=== PATIENT | male | born 1965 | race Caucasian/White ===

== ENCOUNTER 2016-06-29 00:26 | Inpatient (IN) | payer OTHER ==
--- NOTE | 2016-06-29 00:45 | HP ---
CIWA Score - CIWA Score Nausea/Vomitin-Mild Nausea/No Vomiting Muscle Tremors: 2 Anxiety: 3 Agitation: 3 Paroxysmal Sweats: 3 Orientation: 1-Uncertain about Date Tacttile Disturbances: 2-Mild Itch/Numbness/Burn Auditory Disturbances: 1-Very Mild Visual Disturbances: 1-Very Mild Sensitivity Headache: 2-Mild CIWA-Ar Total Score: 19 Admission ROS BHS - HPI Chief Complaint: WITHDRAWAL SYMPTOM Allergies/Adverse Reactions: Allergies Allergy/AdvReac Type Severity Reaction Status Date / Time No Known Allergies Allergy Verified 07/16/15 17:23 History of Present Illness: 51 Y.O. MAN WITH AN EXTENSIVE HISTORY OF ALCOHOL AND BENZODIAZEPINE DEPENDENCE IS SEEKING DETOX. HE HAS PREVIOUSLY COMPLETED DETOX HERE AND HIS LAST ADMISSION WAS IN 07/2015. Exam Limitations: Intoxication - Ebola screening Have you traveled outside of the country in the last 21 days: No - Review of Systems Constitutional: Chills, Loss of Appetite, Night Sweats, Changes in sleep EENT: reports: Blurred Vision, Double Vision, Tearing Respiratory: reports: No Symptoms reported Cardiac: reports: No Symptoms Reported GI: reports: Diarrhea, Vomiting : reports: No Symptoms Reported Musculoskeletal: reports: No Symptoms Reported Integumentary: reports: No Symptoms Reported Neuro: reports: Headache, Seizure, Tremors, Unsteady Gait Endocrine: reports: No Symptoms Reported Hematology: reports: No Symptoms Reported Psychiatric: reports: Anxious Other Systems: Reviewed and Negative Patient History - Patient Medical History Hx Anemia: No Hx Asthma: No Hx Chronic Obstructive Pulmonary Disease (COPD): No Hx Cancer: No Hx Cardiac Disorders: Yes (Cardiomyopathy) Hx Congestive Heart Failure: No Hx Hypertension: Yes (on meds) Hx Hypercholesterolemia: No Hx Pacemaker: No HX Cerebrovascular Accident: No Hx Seizures: Yes (ETOH related seizures last 9 months ago.) Hx Dementia: No Hx Diabetes: No Hx Gastrointestinal Disorders: No Hx Liver Disease: No Hx Genitourinary Disorders: No Hx Sexually Transmitted Disorders: No Hx Renal Disease (ESRD): No Hx Thyroid Disease: No Hx Human Immunodeficiency Virus (HIV): No Hx Hepatitis C: No Hx Depression: Yes Hx Suicide Attempt: No Hx Bipolar Disorder: No Hx Schizophrenia: No - Patient Surgical History Past Surgical History: Yes Hx Neurologic Surgery: No Hx Cataract Extraction: No Hx Cardiac Surgery: No Hx Lung Surgery: No Hx Breast Surgery: No Hx Breast Biopsy: No Hx Abdominal Surgery: Yes (umbilical hernia (1997)) Hx Appendectomy: Yes (1998) Hx Cholecystectomy: No Hx Genitourinary Surgery: No Hx Section: No Hx Orthopedic Surgery: No Anesthesia Reaction: No - PPD History Previous Implant?: Yes Documented Results: Negative w/proof Implanted On Prior [facility] Admission?: Yes Date: 02/18/15 Results: 0 mm PPD to be Administered?: Yes - Reproductive History Patient is a Female of Child Bearing Age (11 -55 yrs old): No - Smoking Cessation Smoking history: Current some day smoker Have you smoked in the past 12 months: Yes Aproximately how many cigarettes per day: 1 If you are a former smoker, when did you quit?: 7 YRS AGO. Cigars Per Day: 0 Hx Chewing Tobacco Use: No Initiated information on smoking cessation: Yes 'Breaking Loose' booklet given: 06/29/16 - Substance & Tx. History Hx Alcohol Use: Yes Hx Substance Use: Yes Substance Use Type: Alcohol, Heroin Hx Substance Use Treatment: Yes (DETOX AND REHAB ) - Substances Abused Alcohol Route: Oral Frequency: Daily Amount used: 2 6-PACKS OF BEER AND 1 PINT OF LIQUOR Age of first use: 16 Date of Last Use: 06/28/16 Alprazolam (Xanax) Route: Oral Frequency: Daily Amount used: 1MG Age of first use: 33 Date of Last Use: 06/28/16 Heroin Route: Oral Frequency: 1-3 times last 30 days Amount used: 1 BAG Age of first use: 24 Date of Last Use: 06/19/16 Family Disease History - Family Disease History Family Disease History: Other: Father (ETOH DEPENDENT), Mother (THYROID DISEASE ), Brother (ETOH DEPENDENT) Admission Physical Exam S - Vital Signs Vital Signs: Last Vital Signs Temp Pulse Resp BP Pulse Ox 98.9 F 105 H 19 144/94 06/29/16 01:35 06/29/16 01:35 06/29/16 01:35 06/29/16 01:35 - Physical General Appearance: Yes: Alcohol on Breath, Intoxicated, Obese, Tremorous, Anxious HEENTM: Yes: Hearing grossly Normal, Normocephalic, Normal Voice Respiratory: Yes: Chest Non-Tender, Lungs Clear, Normal Breath Sounds, No Respiratory Distress, No Accessory Muscle Use Neck: Yes: No masses,lesions,Nodules Breast: Yes: Breast Exam Deferred Cardiology: Yes: Regular Rhythm, S1, S2, Tachycardia Abdominal: Yes: Normal Bowel Sounds, Non Tender, Flat, Soft Genitourinary: Yes: Within Normal Limits Back: Yes: Normal Inspection Musculoskeletal: Yes: full range of Motion, Gait Steady Extremities: Yes: Tremors, Pedal Edema Neurological: Yes: bottle capper II-XII NML intact, Alert Integumentary: Yes: Normal Color, Dry, Warm Lymphatic: Yes: Within Normal Limits - Diagnostic (1) Alcohol dependence with uncomplicated withdrawal Current Visit: Yes Status: Chronic (2) Benzodiazepine dependence Current Visit: Yes Status: Chronic (3) HTN (hypertension) Current Visit: Yes Status: Chronic Qualifiers: Hypertension type: essential hypertension Qualified Code(s): I10 - Essential (primary) hypertension (4) Obesity Current Visit: Yes Status: Chronic Qualifiers: Obesity severity: unspecified obesity severity Cleared for Admission S - Detox or Rehab [facility] Level of Care: Medically Managed Detox Regimen/Protocol: Librium S Breath Alcohol Content Breath Alcohol Content: 0.112 Vital Signs - Vital Signs Vital Signs Refused: No Temperature: 98.9 F Temperature Source: Oral Pulse Rate: 105 Respiratory Rate: 19 Blood Pressure: 144/94 BP Location: Left Arm - Height Height: 5 ft 7 in - Weight Weight: 215 lb Weight Measurement Method: Standing Scale Body Mass Index (BMI): 33.6 Urine Drug Screen - Control Is Test Valid: Yes - Results Drug Screen Negative: No Urine Drug Screen Results: JEFE-Cocaine, BZO-Benzodiazepines
[2016-06-29] MEDS ORDERED: chlordiazePOXIDE HCL 25 MG CAPSULE PO ONE ×2 (01:03→14:00)
[2016-06-29] MEDS ORDERED: P-EPHED 60MG/TRIPROLIDI 2.5MG TABLET PO PRN (01:03)
[2016-06-29] MEDS ORDERED: LOPERAMIDE HCL 2 MG CAPSULE PO PRN (01:03)
[2016-06-29] MEDS ORDERED: MAGNESIUM CITRATE 300 ML BOTTLE PO PRN (01:03)
[2016-06-29] MEDS ORDERED: IBUPROFEN 400 MG TABLET (FP) PO PRN (01:03)
[2016-06-29] MEDS ORDERED: guaiFENesin/D-METHORPHAN HB 10 ML UNIT-DOSE CUPS PO PRN (01:03)
[2016-06-29] MEDS ORDERED: MAG HYDROX/AL HYDROX/SIMETH 30 ML UNIT-DOSE CUP PO PRN (01:03)
[2016-06-29] MEDS ORDERED: MENTHOL/PHENOL 1 EACH UD MM PRN (01:03)
[2016-06-29] MEDS ORDERED: MAGNESIUM HYDROX 2400MG/30ML ORAL SUSPENSION 30 ML CUP PO PRN (01:03)
[2016-06-29 01:35] VITALS: BMI 33.6
[2016-06-29] MEDS: chlordiazePOXIDE HCL 25 MG CAPSULE PO SCH ×4 (05:54→22:18)
[2016-06-29] MEDS ORDERED: LISINOPRIL 10 MG TABLET (FP) PO SCH (10:00)
[2016-06-29] MEDS: PRENATAL VITAMINS W/ FOLIC ACID TABLET (FP) PO SCH (10:31)
[2016-06-29] MEDS: chlordiazePOXIDE HCL 25 MG CAPSULE PO PRN ×2 (12:35→20:03)
--- NOTE | 2016-06-29 13:07 | PN ---
[facility] Progress Note Note: Pt. was admitted earlier today,he's still tremulous. Vital Signs - 8 hr 06/29/16 06/29/16 06:29 11:53 Temperature 97.4 F L 97.7 F Pulse Rate 101 H 110 H Respiratory 18 20 Rate Blood Pressure 144/93 150/91 labs pending.A review of past medication & outside pharmacy reveals that pt. was taking coreg & lasix,moreover lisinopril was twice a day. P : Medications are ordered
[2016-06-29] MEDS: CARVEDILOL 6.25 MG TABLET (FP) PO SCH ×2 (15:43→22:18)
[2016-06-29] MEDS: FUROSEMIDE 20 MG TABLET (FP) PO SCH (15:43)
[2016-06-29] MEDS: hydrOXYzine PAMOATE 50 MG CAPSULE (FP) PO PRN (17:47)
[2016-06-29] MEDS: LISINOPRIL 10 MG TABLET (FP) PO SCH (22:18)
[2016-06-29] MEDS: THIAMINE HCL 100 MG TABLET (FP) PO SCH (22:18)
[2016-06-29] MEDS: diphenhydrAMINE HCL 50 MG CAPSULE PO PRN (22:19)
--- NOTE | 2016-06-30 00:47 | EKG ---
Test Reason : Blood Pressure : / mmHG Vent. Rate : 088 BPM Atrial Rate : 088 BPM P-R Int : 172 ms QRS Dur : 118 ms QT Int : 376 ms P-R-T Axes : 061 026 054 degrees QTc Int : 454 ms NORMAL SINUS RHYTHM NON-SPECIFIC INTRA-VENTRICULAR CONDUCTION DELAY BORDERLINE ECG NO PREVIOUS ECGS AVAILABLE Confirmed by SANDRA RUBY, SHUN ([id number]) on 06/30/2016 12:47:10 AM Referred By: Confirmed By:SHUN FLORES MD
[2016-06-30] MEDS: chlordiazePOXIDE HCL 25 MG CAPSULE PO SCH ×4 (05:10→22:19)
[2016-06-30 10:13] LABS: MCH 31.7 pg (25.7-33.7); MCHC 33.2 g/dl (32.0-35.9); MEAN CELL VOLUME 95.7 fl (80-96); MEAN PLT VOLUME 9.3 fl (7.5-11.1); PLATELET COUNT 127 K/MM3 (134-434); RDW 14.4 % (11.9-15.9); WHITE BLOOD COUNT 9.7 K/mm3 (4.0-10.0)
[2016-06-30 10:23] LABS: ALK PHOS 97 U/L (45-117); ANION GAP 11 (8-16); BILIRUBIN,TOTAL 0.4 mg/dL (0.2-1.0); CO2 26 mmol/L (21-32); GLUCOSE,RANDOM 112 mg/dL (74-106); SGOT/AST 77 U/L (15-37); SGPT/ALT 53 U/L (12-78); TOT PROT 7.7 g/dl (6.4-8.2)
[2016-06-30] MEDS: PRENATAL VITAMINS W/ FOLIC ACID TABLET (FP) PO SCH (10:23)
[2016-06-30] MEDS: CARVEDILOL 6.25 MG TABLET (FP) PO SCH ×2 (10:23→22:19)
[2016-06-30] MEDS: ACETAMINOPHEN 325 MG TABLET (FP) PO PRN (10:23)
[2016-06-30] MEDS: FUROSEMIDE 20 MG TABLET (FP) PO SCH (10:23)
[2016-06-30] MEDS: LISINOPRIL 10 MG TABLET (FP) PO SCH ×2 (10:23→22:19)
[2016-06-30 10:35] LABS: URINE APPEARANCE CLEAR; URINE BILIRUBIN NEGATIVE (NEGATIVE); URINE BLOOD NEGATIVE (NEGATIVE); URINE COLOR LTYELLOW; URINE GLUCOSE (UA) NEGATIVE (NEGATIVE); URINE KETONE NEGATIVE (NEGATIVE); URINE LEUK ESTERASE NEGATIVE (NEGATIVE); URINE NITRITE NEGATIVE (NEGATIVE); URINE PROTEIN NEGATIVE (NEGATIVE); URINE UROBILINOGEN NEGATIVE E.U./dl (0.2-1.0)
--- NOTE | 2016-06-30 11:58 | CONSULT ---
[facility] Psychiatric Consult - Data Date of interview: 06/30/16 Admission source: [facility] Identifying data: Mr Castillo is a 51 years old single male, unemployed on public assistance, domiciled seeking detox treatment for alcohol, heroin and xanax Substance Abuse History: - Smoking Cessation. Smoking history: Current some day smoker. Have you smoked in the past 12 months: Yes. Aproximately how many cigarettes per day: 1. If you are a former smoker, when did you quit?: 7 YRS AGO. Cigars Per Day: 0. Hx Chewing Tobacco Use: No. Initiated information on smoking cessation: Yes. 'Breaking Loose' booklet given: 06/29/16. - Substance & Tx. History. Hx Alcohol Use: Yes. Hx Substance Use: Yes. Substance Use Type : Alcohol, Heroin. Hx Substance Use Treatment: Yes (DETOX AND REHAB ). - Substances Abused. Alcohol. Route: Oral. Frequency: Daily. Amount used: 2 6-PACKS OF BEER AND 1 PINT OF LIQUOR. Age of first use: 16. Date of Last Use : 06/28/16. Alprazolam (Xanax). Route: Oral. Frequency: Daily. Amount used: 1MG. Age of first use: 33. Date of Last Use: 06/28/16. Heroin. Route: Oral. Frequency: 1-3 times last 30 days. Amount used: 1 BAG. Age of first use: 24. Date of Last Use: 06/19/16 Medical History: Significant for HTN, Cardiomyopathy, Alcohol-induced seizure, Obesity, surgery for left Inguinal Hernia repair in 1997 and Appendectomy in 1998 Psychiatric History: Denies history of previous psychiatric treatment. However, reports feeling anxious and experiencing difficulty to sleep Mental Status Exam - Mental Status Exam Alert and Oriented to: Time, Place, Person Cognitive Function: Fair Patient Appearance: Well Groomed Mood: Anxious Affect: Appropriate Patient Behavior: Cooperative Speech Pattern: Clear Voice Loudness: Normal Thought Process: Intact Thought Disorder: Not Present Hallucinations: Denies Suicidal Ideation: Denies Homicidal Ideation: Denies Insight/Judgement: Poor Sleep: Poorly Appetite: Good Muscle strength/Tone: Normal Gait/Station: Normal Psychiatric Findings - Problem List ([place] 1, 2,3) (1) Substance induced mood disorder Current Visit: No Status: Acute (2) Substance-induced sleep disorder Current Visit: No Status: Acute (3) Alcohol dependence with uncomplicated withdrawal Current Visit: Yes Status: Chronic (4) Opiate dependence Current Visit: No Status: Acute (5) Benzodiazepine dependence Current Visit: Yes Status: Chronic (6) HTN (hypertension) Current Visit: Yes Status: Chronic Qualifiers: Hypertension type: essential hypertension Qualified Code(s): I10 - Essential (primary) hypertension (7) Obesity Current Visit: Yes Status: Chronic Qualifiers: Obesity severity: unspecified obesity severity - Initial Treatment Plan Initial Treatment Plan: Start Ambien 10 mg po HS prn for insomnia. Benefit vs Risks of medication discussed with patient and he agreeed to try it
[2016-06-30] MEDS ORDERED: PNEUMOC 13-VAL CONJ-DIP CRM/PF 0.5 ML DISP.SYRIN IM ONE (12:00)
[2016-06-30] MEDS ORDERED: PNEUMOCOCCAL 23 VACCINE 0.5 ML VIAL IM ONE (12:00)
--- NOTE | 2016-06-30 16:40 | PN ---
S CIWA - CIWA Score Nausea/Vomitin-No Nausea/No Vomiting Muscle Tremors: 4-Moderate,w/Arms Extend Anxiety: 2 Agitation: 2 Paroxysmal Sweats: 3 Orientation: 0-Oriented Tacttile Disturbances: 3-Moderate Itch/Numb/Burn Auditory Disturbances: 0-None Visual Disturbances: 2-Mild Sensitivity Headache: 3-Moderate CIWA-Ar Total Score: 19 BHS Progress Note (SOAP) Subjective: Sweating, Constipation, Tremors, H/A, Interrupted sleep. Objective: PT. A & O X 3, OBSERVED AMBULATING ON UNIT. 06/30/16 16:39 Vital Signs Temperature 98.4 F 06/30/16 13:03 Pulse Rate 83 06/30/16 13:03 Respiratory Rate 18 06/30/16 13:03 Blood Pressure 114/72 06/30/16 13:03 O2 Sat by Pulse Oximetry (%) Laboratory Last Values WBC 9.7 K/mm3 (4.0-10.0) D 06/30/16 06:15 RBC 4.30 M/mm3 (4.00-5.60) 06/30/16 06:15 Hgb 13.7 GM/dL (11.7-16.9) 06/30/16 06:15 Hct 41.2 % (35.4-49) 06/30/16 06:15 MCV 95.7 fl (80-96) 06/30/16 06:15 MCHC 33.2 g/dl (32.0-35.9) 06/30/16 06:15 RDW 14.4 % (11.9-15.9) 06/30/16 06:15 Plt Count 127 K/MM3 (134-434) L D 06/30/16 06:15 MPV 9.3 fl (7.5-11.1) 06/30/16 06:15 Sodium 140 mmol/L (136-145) 06/30/16 06:15 Potassium 4.0 mmol/L (3.5-5.1) D 06/30/16 06:15 Chloride 103 mmol/L (98-107) 06/30/16 06:15 Carbon Dioxide 26 mmol/L (21-32) 06/30/16 06:15 Anion Gap 11 (8-16) 06/30/16 06:15 BUN 12 mg/dL (7-18) 06/30/16 06:15 Creatinine 1.0 mg/dL (0.7-1.3) D 06/30/16 06:15 Creat Clearance w eGFR > 60 (>60) 06/30/16 06:15 Random Glucose 112 mg/dL (74-106) H 06/30/16 06:15 Calcium 9.0 mg/dL (8.5-10.1) 06/30/16 06:15 Total Bilirubin 0.4 mg/dL (0.2-1.0) 06/30/16 06:15 AST 77 U/L (15-37) H 06/30/16 06:15 ALT 53 U/L (12-78) D 06/30/16 06:15 Alkaline Phosphatase 97 U/L (45-117) D 06/30/16 06:15 Total Protein 7.7 g/dl (6.4-8.2) 06/30/16 06:15 Albumin 4.0 g/dl (3.4-5.0) D 06/30/16 06:15 Urine Color Ltyellow 06/30/16 06:15 Urine Appearance Clear 06/30/16 06:15 Urine pH 7.0 (5.0-8.0) 06/30/16 06:15 Ur Specific [place] 1.011 (1.001-1.035) 06/30/16 06:15 Urine Protein Negative (NEGATIVE) 06/30/16 06:15 Urine Glucose (UA) Negative (NEGATIVE) 06/30/16 06:15 Urine Ketones Negative (NEGATIVE) 06/30/16 06:15 Urine Blood Negative (NEGATIVE) 06/30/16 06:15 Urine Nitrite Negative (NEGATIVE) 06/30/16 06:15 Urine Bilirubin Negative (NEGATIVE) 06/30/16 06:15 Urine Urobilinogen Negative E.U./dl (0.2-1.0) 06/30/16 06:15 Ur Leukocyte Esterase Negative (NEGATIVE) 06/30/16 06:15 RPR Titer Nonreactive (NONREACTIVE) 06/30/16 06:15 LABS NOTED. Assessment: 06/30/16 16:40 WITHDRAWAL SYMPTOMS. Plan: CONTINUE DETOX. ADVISED PATIENT TO FOLLOW-UP WITH [facility] / REHAB MEDICAL PROVIDER AFTER DISCHARGE FROM DETOX FOR GENERAL MEDICAL ASSESSMENT AND FOR ABNORMAL LAB VALUES.
[2016-06-30] MEDS ORDERED: ZOLPIDEM TARTRATE 10 MG TABLET (PARK CARE ONLY) PO PRN (22:00)
[2016-06-30] MEDS: DOCUSATE SODIUM 100 MG CAPSULE (FP) PO SCH (22:19)
[2016-06-30] MEDS: THIAMINE HCL 100 MG TABLET (FP) PO SCH (22:19)
[2016-06-30] MEDS: diphenhydrAMINE HCL 50 MG CAPSULE PO PRN (22:20)
[2016-07-01] MEDS: chlordiazePOXIDE HCL 25 MG CAPSULE PO PRN (01:56)
[2016-07-01] MEDS: diphenhydrAMINE HCL 50 MG CAPSULE PO PRN ×2 (01:56→22:14)
[2016-07-01] MEDS: chlordiazePOXIDE 5 MG CAPSULE PO SCH ×2 (05:53→10:16)
[2016-07-01] MEDS: LISINOPRIL 10 MG TABLET (FP) PO SCH ×2 (10:16→22:14)
[2016-07-01] MEDS: DOCUSATE SODIUM 100 MG CAPSULE (FP) PO SCH ×2 (10:16→22:14)
[2016-07-01] MEDS: PRENATAL VITAMINS W/ FOLIC ACID TABLET (FP) PO SCH (10:16)
[2016-07-01] MEDS: CARVEDILOL 6.25 MG TABLET (FP) PO SCH ×2 (10:17→22:14)
[2016-07-01] MEDS: FUROSEMIDE 20 MG TABLET (FP) PO SCH (10:17)
[2016-07-01] MEDS: ACETAMINOPHEN 325 MG TABLET (FP) PO PRN ×2 (10:19→17:40)
--- NOTE | 2016-07-01 11:00 | PN ---
[facility] CIWA - CIWA Score Nausea/Vomitin-No Nausea/No Vomiting Muscle Tremors: 4-Moderate,w/Arms Extend Anxiety: 4-Mod. Anxious/Guarded Agitation: 4-Moderately Restless Paroxysmal Sweats: 1-Minimal Palms Moist Orientation: 0-Oriented Tacttile Disturbances: 3-Moderate Itch/Numb/Burn Auditory Disturbances: 0-None Visual Disturbances: 0-None Headache: 0-None Present CIWA-Ar Total Score: 16 BHS Progress Note (SOAP) Subjective: ANXIETY-"NERVOUS',SWEATS,SLIGHT TREMORS. Objective: 07/01/16 11:00 Vital Signs Temperature 99.0 F 07/01/16 06:42 Pulse Rate 82 07/01/16 06:42 Respiratory Rate 18 07/01/16 06:42 Blood Pressure 143/101 07/01/16 06:42 O2 Sat by Pulse Oximetry (%) Laboratory Last Values WBC 9.7 K/mm3 (4.0-10.0) D 06/30/16 06:15 RBC 4.30 M/mm3 (4.00-5.60) 06/30/16 06:15 Hgb 13.7 GM/dL (11.7-16.9) 06/30/16 06:15 Hct 41.2 % (35.4-49) 06/30/16 06:15 MCV 95.7 fl (80-96) 06/30/16 06:15 MCHC 33.2 g/dl (32.0-35.9) 06/30/16 06:15 RDW 14.4 % (11.9-15.9) 06/30/16 06:15 Plt Count 127 K/MM3 (134-434) L D 06/30/16 06:15 MPV 9.3 fl (7.5-11.1) 06/30/16 06:15 Sodium 140 mmol/L (136-145) 06/30/16 06:15 Potassium 4.0 mmol/L (3.5-5.1) D 06/30/16 06:15 Chloride 103 mmol/L (98-107) 06/30/16 06:15 Carbon Dioxide 26 mmol/L (21-32) 06/30/16 06:15 Anion Gap 11 (8-16) 06/30/16 06:15 BUN 12 mg/dL (7-18) 06/30/16 06:15 Creatinine 1.0 mg/dL (0.7-1.3) D 06/30/16 06:15 Creat Clearance w eGFR > 60 (>60) 06/30/16 06:15 Random Glucose 112 mg/dL (74-106) H 06/30/16 06:15 Calcium 9.0 mg/dL (8.5-10.1) 06/30/16 06:15 Total Bilirubin 0.4 mg/dL (0.2-1.0) 06/30/16 06:15 AST 77 U/L (15-37) H 06/30/16 06:15 ALT 53 U/L (12-78) D 06/30/16 06:15 Alkaline Phosphatase 97 U/L (45-117) D 06/30/16 06:15 Total Protein 7.7 g/dl (6.4-8.2) 06/30/16 06:15 Albumin 4.0 g/dl (3.4-5.0) D 06/30/16 06:15 Urine Color Ltyellow 06/30/16 06:15 Urine Appearance Clear 06/30/16 06:15 Urine pH 7.0 (5.0-8.0) 06/30/16 06:15 Ur Specific [place] 1.011 (1.001-1.035) 06/30/16 06:15 Urine Protein Negative (NEGATIVE) 06/30/16 06:15 Urine Glucose (UA) Negative (NEGATIVE) 06/30/16 06:15 Urine Ketones Negative (NEGATIVE) 06/30/16 06:15 Urine Blood Negative (NEGATIVE) 06/30/16 06:15 Urine Nitrite Negative (NEGATIVE) 06/30/16 06:15 Urine Bilirubin Negative (NEGATIVE) 06/30/16 06:15 Urine Urobilinogen Negative E.U./dl (0.2-1.0) 06/30/16 06:15 Ur Leukocyte Esterase Negative (NEGATIVE) 06/30/16 06:15 RPR Titer Nonreactive (NONREACTIVE) 06/30/16 06:15 Assessment: 07/01/16 11:00 WITHDRAWAL SX Plan: CONTINUE DETOX
[2016-07-01] MEDS: hydrOXYzine PAMOATE 50 MG CAPSULE (FP) PO PRN (12:11)
[2016-07-01] MEDS ORDERED: chlordiazePOXIDE HCL 25 MG CAPSULE PO PRN (15:05)
[2016-07-01] MEDS: chlordiazePOXIDE HCL 10 MG CAPSULE PO SCH ×2 (17:26→22:13)
[2016-07-01] MEDS: THIAMINE HCL 100 MG TABLET (FP) PO SCH (22:13)
[2016-07-01 23:32] VITALS: BP 127/79; PULSE 78; TEMP 96.6
[2016-07-02] MEDS ORDERED: chlordiazePOXIDE HCL 10 MG CAPSULE PO SCH (05:00)
[2016-07-02] MEDS: chlordiazePOXIDE HCL 10 MG CAPSULE PO SCH (05:23)
[2016-07-02] MEDS: ACETAMINOPHEN 325 MG TABLET (FP) PO PRN (05:27)
--- NOTE | 2016-07-02 12:02 | PN ---
S Progress Note (SOAP) Subjective: DETOX COMPLETED Objective: 07/02/16 12:01 Vital Signs Temperature 96.6 F L 07/01/16 23:32 Pulse Rate 78 07/01/16 23:32 Respiratory Rate 20 07/02/16 00:30 Blood Pressure 127/79 07/01/16 23:32 O2 Sat by Pulse Oximetry (%) Assessment: 07/02/16 12:01 DECREASED WITHDRAWAL SX Plan: D/C'D TODAY.
--- NOTE | 2016-07-02 12:11 | DS ---
[facility] Detox Discharge Summary Admission Date: 06/29/16 Discharge Date: 07/02/16 - History Present History: Alcohol Dependence Additional Comments: DETOX COMPLETED. Pertinent Past History: HTN CARDIOMYOPATHY SEIZURE HX S/P UMBILICAL HERNIA REPAIR DEPRESSION - Physical Exam Results Vital Signs: Vital Signs Temperature 96.6 F L 07/01/16 23:32 Pulse Rate 78 07/01/16 23:32 Respiratory Rate 20 07/02/16 00:30 Blood Pressure 127/79 07/01/16 23:32 O2 Sat by Pulse Oximetry (%) Pertinent Admission Physical Exam Findings: WITHDRAWAL SX - Treatment Hospital Course: Detox Protocol Followed, Detoxed Safely, Responded well, Discharged Condition Good - Medication Discharge Medications: Ambulatory Orders Carvedilol [Coreg -] 6.25 mg PO BID 07/16/15 Lisinopril [Lisinopril] 06/29/16 - Diagnosis (1) Alcohol dependence with uncomplicated withdrawal Status: Acute (2) HTN (hypertension) Status: Chronic Qualifiers: Hypertension type: essential hypertension Qualified Code(s): I10 - Essential (primary) hypertension (3) History of cardiomyopathy Status: Chronic (4) Obesity Status: Chronic Qualifiers: Obesity severity: unspecified obesity severity - AMA Did Patient Leave Against Medical Advice: No
== END 2016-07-02 05:34 | disposition home or self-care (01) | DRG 775 ==
LOC: YASAS 00:26 → Y3N 01:02
PROVIDERS: ADMIT Internal Medicine; ATTEND Internal Medicine
PROC: HZ2ZZZZ Detoxification Services for Substance Abuse Treatment (ICD-10-PCS; principal; 2016-06-29)
DX: F10.230 Alcohol dependence with withdrawal, uncomplicated (principal); F13.20 Sedative, hypnotic or anxiolytic dependence, uncomplicated; F17.210 Nicotine dependence, cigarettes, uncomplicated; F19.24 Other psychoactive substance dependence with psychoactive substance-induced mood disorder; F19.282 Other psychoactive substance dependence with psychoactive substance-induced sleep disorder; E66.9 Obesity, unspecified; Z68.33 Body mass index [BMI] 33.0-33.9, adult; I42.9 Cardiomyopathy, unspecified; Z86.69 Personal history of other diseases of the nervous system and sense organs
CPT/HCPCS: 36415; 80053; 81003; 85027; 86593; 93005; 93010

== ENCOUNTER 2016-09-06 18:14 | Inpatient (IN) | payer OTHER ==
--- NOTE | 2016-09-06 19:50 | HP ---
CIWA Score - CIWA Score Nausea/Vomitin-Mild Nausea/No Vomiting Muscle Tremors: 3 Anxiety: 3 Agitation: 4-Moderately Restless Paroxysmal Sweats: 3 Orientation: 1-Uncertain about Date Tacttile Disturbances: 0-None Auditory Disturbances: 0-None Visual Disturbances: 0-None Headache: 3-Moderate CIWA-Ar Total Score: 18 Admission ROS BHS - HPI Chief Complaint: WITHDRAWAL SYMPTOMS Allergies/Adverse Reactions: Allergies Allergy/AdvReac Type Severity Reaction Status Date / Time No Known Allergies Allergy Verified 06/29/16 02:38 History of Present Illness: 51 Y.O. WITH AN EXTENSIVE HISTORY OF ALCOHOL DEPENDENCE IS HERE SEEKING DETOX. HE WAS LAST HERE IN 06/2016 BUT LEFT AMA. HE REPORTS HAVING A 7 YEAR HISTORY OF SOBRIETY BUT RELAPSED IN 2007. Exam Limitations: Intoxication - Ebola screening Have you traveled outside of the country in the last 21 days: No Have you had contact with anyone from an Ebola affected area: No Do you have a fever: No - Review of Systems Constitutional: Chills, Diaphoresis, Night Sweats EENT: reports: Blurred Vision, Double Vision, Tearing Respiratory: reports: Shortness of Breath Cardiac: reports: No Symptoms Reported GI: reports: Vomiting : reports: No Symptoms Reported Musculoskeletal: reports: No Symptoms Reported Integumentary: reports: No Symptoms Reported Neuro: reports: Seizure (H/O SZ-LAST WAS 1 YR AGO) Endocrine: reports: No Symptoms Reported Hematology: reports: No Symptoms Reported Psychiatric: reports: Anxious, Depressed Other Systems: Reviewed and Negative Patient History - Patient Medical History Hx Anemia: No Hx Asthma: No Hx Chronic Obstructive Pulmonary Disease (COPD): No Hx Cancer: No Hx Cardiac Disorders: Yes (Cardiomyopathy) Hx Congestive Heart Failure: No Hx Hypertension: Yes Hx Hypercholesterolemia: No Hx Pacemaker: No HX Cerebrovascular Accident: No Hx Seizures: Yes (ETOH INDUCED-1YR AGO ) Hx Dementia: No Hx Diabetes: No Hx Gastrointestinal Disorders: Yes (GERD) Hx Liver Disease: No Hx Genitourinary Disorders: No Hx Sexually Transmitted Disorders: No Hx Renal Disease (ESRD): No Hx Thyroid Disease: No Hx Human Immunodeficiency Virus (HIV): No Hx Hepatitis C: No Hx Depression: Yes Hx Suicide Attempt: No Hx Bipolar Disorder: No Hx Schizophrenia: No - Patient Surgical History Past Surgical History: Yes Hx Neurologic Surgery: No Hx Cataract Extraction: No Hx Cardiac Surgery: No Hx Lung Surgery: No Hx Breast Surgery: No Hx Breast Biopsy: No Hx Abdominal Surgery: Yes (umbilical hernia (1997)) Hx Appendectomy: Yes (1998) Hx Cholecystectomy: No Hx Genitourinary Surgery: No Hx Section: No Hx Orthopedic Surgery: No Anesthesia Reaction: No - PPD History Previous Implant?: Yes Documented Results: Negative w/proof Implanted On Prior [facility] Admission?: Yes Date: 07/01/16 Results: 0 mm PPD to be Administered?: No - Reproductive History Patient is a Female of Child Bearing Age (11 -55 yrs old): No - Smoking Cessation Smoking history: Current some day smoker Have you smoked in the past 12 months: Yes Aproximately how many cigarettes per day: 1 If you are a former smoker, when did you quit?: 7 YRS AGO. Cigars Per Day: 0 Hx Chewing Tobacco Use: No Initiated information on smoking cessation: Yes 'Breaking Loose' booklet given: 09/06/16 - Substance & Tx. History Hx Alcohol Use: Yes Hx Substance Use: Yes Substance Use Type: Alcohol, Tranquilizers Hx Substance Use Treatment: Yes (DETOX AND REHAB ) - Substances Abused Alprazolam (Xanax) Route: Oral Frequency: Daily Amount used: 0.5 Age of first use: 47 Date of Last Use: 09/06/16 Alcohol Route: Oral Frequency: Daily Amount used: 1/5 LIQOUR AND 24 CANS OF 16OZ OF BEERS Age of first use: 18 Date of Last Use: 09/06/16 Family Disease History - Family Disease History Family Disease History: Other: Father (ETOH DEPENDENT), Mother (THYROID DISEASE ), Brother (ETOH DEPENDENT) Admission Physical Exam S - Vital Signs Vital Signs: Last Vital Signs Temp Pulse Resp BP Pulse Ox 98.4 F 95 H 17 121/77 09/06/16 20:06 09/06/16 20:06 09/06/16 20:06 09/06/16 20:06 - Physical General Appearance: Yes: Disheveled, Alcohol on Breath, Intoxicated, Obese, Sweating, Anxious HEENTM: Yes: Hearing grossly Normal, Normal ENT Inspection, Normocephalic, Normal Voice Respiratory: Yes: Lungs Clear, Normal Breath Sounds, No Respiratory Distress, No Accessory Muscle Use Neck: Yes: No masses,lesions,Nodules, Trachea in good position Breast: Yes: Breast Exam Deferred Cardiology: Yes: Regular Rhythm, Regular Rate Abdominal: Yes: Normal Bowel Sounds, Non Tender Genitourinary: Yes: Other (NO COMPLAINTS REPORTED) Back: Yes: Normal Inspection Musculoskeletal: Yes: full range of Motion Extremities: Yes: Normal Inspection, Normal Range of Motion, Tremors Neurological: Yes: Alert, Normal Response Integumentary: Yes: Normal Color, Dry, Warm Lymphatic: Yes: Within Normal Limits - Diagnostic (1) Alcohol dependence with uncomplicated withdrawal Current Visit: Yes Status: Chronic (2) HTN (hypertension) Current Visit: Yes Status: Chronic Qualifiers: Hypertension type: essential hypertension Qualified Code(s): I10 - Essential (primary) hypertension (3) Obesity Current Visit: Yes Status: Chronic Qualifiers: Obesity severity: unspecified obesity severity (4) Sedative, hypnotic or anxiolytic dependence with withdrawal, uncomplicated Current Visit: Yes Status: Chronic Cleared for Admission S - Detox or Rehab S Level of Care: Medically Managed Detox Regimen/Protocol: Librium BHS Breath Alcohol Content Breath Alcohol Content: 0.335 Vital Signs - Vital Signs Vital Signs Refused: No Temperature: 98.4 F Temperature Source: Oral Pulse Rate: 95 Respiratory Rate: 17 Blood Pressure: 121/77 BP Location: Left Arm Blood Pressure Position: Sitting - Height Height: 5 ft 7 in - Weight Weight: 238 lb Weight Measurement Method: Standing Scale Body Mass Index (BMI): 37.3 Urine Drug Screen - Test Device Lot Number: [id number] Expiration Date: 04/09/18 - Control Is Test Valid: Yes - Results Drug Screen Negative: No Urine Drug Screen Results: BZO-Benzodiazepines
[2016-09-06 20:06] VITALS: BMI 37.3
[2016-09-06] MEDS ORDERED: MAGNESIUM HYDROX 2400MG/30ML ORAL SUSPENSION 30 ML CUP PO PRN (20:17)
[2016-09-06] MEDS ORDERED: IBUPROFEN 400 MG TABLET (FP) PO PRN (20:17)
[2016-09-06] MEDS ORDERED: LOPERAMIDE HCL 2 MG CAPSULE PO PRN (20:17)
[2016-09-06] MEDS ORDERED: P-EPHED 60MG/TRIPROLIDI 2.5MG TABLET PO PRN (20:17)
[2016-09-06] MEDS ORDERED: diphenhydrAMINE HCL 50 MG CAPSULE PO PRN (20:17)
[2016-09-06] MEDS ORDERED: chlordiazePOXIDE HCL 25 MG CAPSULE PO ONE (20:17)
[2016-09-06] MEDS ORDERED: MAGNESIUM CITRATE 300 ML BOTTLE PO PRN (20:17)
[2016-09-06] MEDS ORDERED: MENTHOL/PHENOL 1 EACH UD MM PRN (20:17)
[2016-09-06] MEDS ORDERED: ACETAMINOPHEN 325 MG TABLET (FP) PO PRN (20:17)
[2016-09-06] MEDS ORDERED: chlordiazePOXIDE HCL 25 MG CAPSULE PO PRN (20:17)
[2016-09-06] MEDS ORDERED: MAG HYDROX/AL HYDROX/SIMETH 30 ML UNIT-DOSE CUP PO PRN (20:17)
[2016-09-06] MEDS ORDERED: hydrOXYzine PAMOATE 50 MG CAPSULE (FP) PO PRN (20:17)
[2016-09-06] MEDS ORDERED: guaiFENesin/D-METHORPHAN HB 10 ML UNIT-DOSE CUPS PO PRN (20:17)
[2016-09-06] MEDS ORDERED: THIAMINE HCL 100 MG TABLET (FP) PO SCH (22:00)
[2016-09-06] MEDS ORDERED: CARVEDILOL 6.25 MG TABLET (FP) PO SCH (22:00)
[2016-09-06] MEDS ORDERED: chlordiazePOXIDE HCL 25 MG CAPSULE PO SCH (23:00)
[2016-09-07] MEDS ORDERED: FUROSEMIDE 40 MG TABLET (FP) PO SCH (10:00)
[2016-09-07] MEDS ORDERED: PRENATAL VITAMINS W/ FOLIC ACID TABLET (FP) PO SCH (10:00)
[2016-09-07] MEDS ORDERED: LISINOPRIL 10 MG TABLET (FP) PO SCH (10:00)
[2016-09-07 10:15] VITALS: BP 109/67; PULSE 83; TEMP 98.6
[2016-09-07 10:27] LABS: MCH 31.5 pg (25.7-33.7); MCHC 33.1 g/dl (32.0-35.9); MEAN CELL VOLUME 95.4 fl (80-96); MEAN PLT VOLUME 8.2 fl (7.5-11.1); PLATELET COUNT 148 K/MM3 (134-434); RDW 13.4 % (11.9-15.9); WHITE BLOOD COUNT 5.1 K/mm3 (4.0-10.0)
--- NOTE | 2016-09-07 10:49 | PN ---
S CIWA - CIWA Score Nausea/Vomitin Muscle Tremors: 3 Anxiety: 3 Agitation: 3 Paroxysmal Sweats: 1-Minimal Palms Moist Orientation: 0-Oriented Tacttile Disturbances: 1-Very Mild Itch/Numbness Auditory Disturbances: 1-Very Mild Visual Disturbances: 1-Very Mild Sensitivity Headache: 2-Mild CIWA-Ar Total Score: 18 BHS Progress Note (SOAP) Subjective: ALERT,IRRITABLE,ANXIOUS,INTERRUPTED SLEEP,TREMOR,PAIN IN THE BODY Objective: 09/07/16 10:47 09/07/16 10:47 Vital Signs Temperature 98.6 F 09/07/16 10:14 Pulse Rate 83 09/07/16 10:14 Respiratory Rate 16 09/07/16 10:14 Blood Pressure 109/67 09/07/16 10:14 O2 Sat by Pulse Oximetry (%) EKG NSR NO CHEST PAIN,NO SOB,NO DIZZINESS Laboratory Last Values WBC 5.1 K/mm3 (4.0-10.0) D 09/07/16 07:50 RBC 4.16 M/mm3 (4.00-5.60) 09/07/16 07:50 Hgb 13.1 GM/dL (11.7-16.9) 09/07/16 07:50 Hct 39.7 % (35.4-49) 09/07/16 07:50 MCV 95.4 fl (80-96) 09/07/16 07:50 MCHC 33.1 g/dl (32.0-35.9) 09/07/16 07:50 RDW 13.4 % (11.9-15.9) 09/07/16 07:50 Plt Count 148 K/MM3 (134-434) 09/07/16 07:50 MPV 8.2 fl (7.5-11.1) D 09/07/16 07:50 LABS PENDING Assessment: 09/07/16 10:48 WITHDRAWAL SYMPTOM Plan: CONTINUE DETOX
--- NOTE | 2016-09-07 10:51 | PN ---
S Progress Note Note: PATIENT DID NOT WANT TO COMPLETE TREATMENT,SEEN BY COUNSELOR,SIGNED RELEASE AMA
[2016-09-07 10:54] LABS: ALBUMIN 3.6 g/dl (3.4-5.0); ALK PHOS 76 U/L (45-117); ANION GAP 10 (8-16); BILIRUBIN,TOTAL 0.4 mg/dL (0.2-1.0); CALCIUM 8.1 mg/dL (8.5-10.1); CO2 26 mmol/L (21-32); CREATININE 0.9 mg/dL (0.7-1.3); GLUCOSE,RANDOM 96 mg/dL (74-106); SGOT/AST 58 U/L (15-37); SGPT/ALT 38 U/L (12-78); TOT PROT 6.9 g/dl (6.4-8.2)
--- NOTE | 2016-09-07 10:55 | DS ---
[facility] Detox Discharge Summary Admission Date: 09/06/16 Discharge Date: 09/07/16 - History Present History: Alcohol Dependence, Sedative Dependence Additional Comments: PATIENT DID NOT WANT TO COMPLETE TREATMENT,SIGNED RELEASE AMA,SEEN BY COUNSELOR Pertinent Past History: HYPERTENSION OBESITY ANXIETY AND DEPRESSION - Physical Exam Results Vital Signs: Vital Signs Temperature 98.6 F 09/07/16 10:14 Pulse Rate 83 09/07/16 10:14 Respiratory Rate 16 09/07/16 10:14 Blood Pressure 109/67 09/07/16 10:14 O2 Sat by Pulse Oximetry (%) Pertinent Admission Physical Exam Findings: WITHDRAWAL SYMPTOM - Medication Discharge Medications: Ambulatory Orders Carvedilol [Coreg -] 6.25 mg PO BID 07/16/15 Lisinopril [Lisinopril] 10 mg PO DAILY 06/29/16 Furosemide [Furosemide] 40 mg PO DAILY 09/06/16 Lisinopril [Lisinopril] 10 mg PO DAILY 09/06/16 - AMA Did Patient Leave Against Medical Advice: Yes
[2016-09-07] MEDS ORDERED: chlordiazePOXIDE HCL 25 MG CAPSULE PO SCH (23:00)
--- NOTE | 2016-09-08 00:13 | EKG ---
Test Reason : Blood Pressure : / mmHG Vent. Rate : 082 BPM Atrial Rate : 082 BPM P-R Int : 192 ms QRS Dur : 094 ms QT Int : 366 ms P-R-T Axes : 044 019 053 degrees QTc Int : 427 ms NORMAL SINUS RHYTHM INCOMPLETE RIGHT BUNDLE BRANCH BLOCK BORDERLINE ECG WHEN COMPARED WITH ECG OF 29-JUN-2016 02:00, NO SIGNIFICANT CHANGE WAS FOUND Confirmed by MYESHA NELSON MD ([id number]) on 09/08/2016 12:12:57 AM Referred By: Confirmed By:MYESHA NELSON MD
[2016-09-08] MEDS ORDERED: chlordiazePOXIDE 5 MG CAPSULE PO SCH (23:00)
[2016-09-09] MEDS ORDERED: chlordiazePOXIDE HCL 10 MG CAPSULE PO SCH (23:00)
== END 2016-09-07 10:39 | disposition left against medical advice (07) | DRG 770 ==
LOC: YASAS 18:14 → Y6N 20:44
PROVIDERS: ADMIT Internal Medicine; ATTEND Internal Medicine
PROC: HZ2ZZZZ Detoxification Services for Substance Abuse Treatment (ICD-10-PCS; principal; 2016-09-07)
DX: F10.230 Alcohol dependence with withdrawal, uncomplicated (principal); F13.230 Sedative, hypnotic or anxiolytic dependence with withdrawal, uncomplicated; I10 Essential (primary) hypertension; G40.509 Epileptic seizures related to external causes, not intractable, without status epilepticus; F32.9 Major depressive disorder, single episode, unspecified; E66.09 Other obesity due to excess calories; Z68.37 Body mass index [BMI] 37.0-37.9, adult
CPT/HCPCS: 36415; 80053; 85027; 86593; 93005; 93010

== ENCOUNTER 2018-01-24 04:18 | Inpatient (IN) | payer OTHER ==
--- NOTE | 2018-01-24 04:43 | HP ---
CIWA Score - CIWA Score Nausea/Vomitin Muscle Tremors: 4-Moderate,w/Arms Extend Anxiety: 3 Agitation: 3 Paroxysmal Sweats: 2 Orientation: 0-Oriented Tacttile Disturbances: 2-Mild Itch/Numbness/Burn Auditory Disturbances: 2-Mild Harshness/Frighten Visual Disturbances: 2-Mild Sensitivity Headache: 3-Moderate CIWA-Ar Total Score: 23 Admission ROS BHS - HPI Chief Complaint: DEPENDENT ON ETOH ONLY Allergies/Adverse Reactions: Allergies Allergy/AdvReac Type Severity Reaction Status Date / Time No Known Allergies Allergy Verified 09/06/16 22:03 History of Present Illness: THE PT. IS REQUESTING ADMISSION TO THE DETOX UNIT AND CAME FOR MEDICAL CLEARANCE Exam Limitations: No Limitations - Ebola screening Have you traveled outside of the country in the last 21 days: No Have you had contact with anyone from an Ebola affected area: No Have you been sick,other than usual withdrawal symptoms: No Do you have a fever: No - Review of Systems Constitutional: See HPI, Weakness EENT: reports: See HPI Respiratory: reports: See HPI Cardiac: reports: See HPI, Syncope GI: reports: See HPI, Diarrhea, Nausea, Vomiting : reports: No Symptoms Reported, See HPI Musculoskeletal: reports: See HPI, Muscle Pain, Muscle Weakness Integumentary: reports: See HPI, Flushing, Sweating Neuro: reports: See HPI, Headache, Tremors, Weakness Endocrine: reports: See HPI Hematology: reports: See HPI Psychiatric: reports: Judgement Intact, Orientated x3, Anxious, Depressed Patient History - Patient Medical History Hx Anemia: No Hx Asthma: No Hx Chronic Obstructive Pulmonary Disease (COPD): No Hx Cancer: No Hx Cardiac Disorders: Yes (Cardiomyopathy) Hx Congestive Heart Failure: No Hx Hypertension: Yes Hx Hypercholesterolemia: No Hx Pacemaker: No HX Cerebrovascular Accident: No Hx Seizures: Yes (ETOH INDUCED-1YR AGO ) Hx Dementia: No Hx Diabetes: No Hx Gastrointestinal Disorders: No Hx Liver Disease: No Hx Genitourinary Disorders: No Hx Sexually Transmitted Disorders: No Hx Renal Disease (ESRD): No Hx Thyroid Disease: No Hx Human Immunodeficiency Virus (HIV): No Hx Hepatitis C: No Hx Depression: Yes (and ANXIETY) Hx Suicide Attempt: No Hx Bipolar Disorder: No Hx Schizophrenia: No - Patient Surgical History Past Surgical History: Yes Hx Neurologic Surgery: No Hx Cataract Extraction: No Hx Cardiac Surgery: No Hx Lung Surgery: No Hx Breast Surgery: No Hx Breast Biopsy: No Hx Abdominal Surgery: Yes (umbilical hernia (1997)) Hx Appendectomy: Yes (1998) Hx Cholecystectomy: No Hx Genitourinary Surgery: No Hx Section: No Hx Orthopedic Surgery: No Anesthesia Reaction: No - PPD History Date: 07/01/16 Results: 0 mm - Smoking Cessation Smoking history: Current some day smoker Have you smoked in the past 12 months: Yes Aproximately how many cigarettes per day: 1 If you are a former smoker, when did you quit?: 7 YRS AGO. Cigars Per Day: 0 Hx Chewing Tobacco Use: No Initiated information on smoking cessation: Yes 'Breaking Loose' booklet given: 01/24/18 - Substance & Tx. History Hx Alcohol Use: Yes Substance Use Type: Alcohol Hx Substance Use Treatment: Yes - Substances Abused Alcohol Route: Oral Frequency: Daily Amount used: BEER 2 X 6 PKS AND LIQUOR 1 P/D Age of first use: 16 Date of Last Use: 01/23/18 Family Disease History - Family Disease History Family Disease History: Other: Father (ETOH DEPENDENT), Mother (THYROID DISEASE ), Brother (ETOH DEPENDENT) Admission Physical Exam [facility] - Physical General Appearance: Yes: No Apparent Distress, Nourished, Appropriately Dressed , Alcohol on Breath, Obese, Tremorous, Sweating, Anxious HEENTM: Yes: Hearing grossly Normal, Normocephalic, Normal Voice, VONDA, Pharynx Normal Respiratory: Yes: Chest Non-Tender, Lungs Clear, Normal Breath Sounds, No Respiratory Distress, No Accessory Muscle Use Neck: Yes: No masses,lesions,Nodules, Supple, Trachea in good position Breast: Yes: Axillae without masses Cardiology: Yes: Regular Rhythm, S1, S2, Tachycardia Abdominal: Yes: Normal Bowel Sounds, Non Tender, Soft, Protuberent Back: Yes: Normal Inspection Musculoskeletal: Yes: full range of Motion, Muscle Pain, Muscle weakness Extremities: Yes: Normal Capillary Refill, Normal Range of Motion, Non-Tender, Tremors Neurological: Yes: Fully Oriented, Alert, Motor Strength 5/5, Normal Response Integumentary: Yes: Warm, Moist Lymphatic: Yes: Within Normal Limits - Diagnostic (1) Alcohol dependence Current Visit: No Status: Chronic (2) Anxiety and depression Current Visit: No Status: Chronic (3) HTN (hypertension) Current Visit: No Status: Chronic Qualifiers: Hypertension type: essential hypertension Qualified Code(s): I10 - Essential (primary) hypertension (4) Obesity Current Visit: No Status: Chronic Cleared for Admission B[facility] - Detox or Rehab [facility] Level of Care: Medically Managed Detox Regimen/Protocol: Librium BHS Breath Alcohol Content Breath Alcohol Content: 0.333
[2018-01-24 04:49] VITALS: BMI 31.9
[2018-01-24] MEDS ORDERED: NICOTINE POLACRILEX 2 MG GUM BC PRN (04:55)
[2018-01-24] MEDS ORDERED: ACETAMINOPHEN 325 MG TABLET (FP) PO PRN (04:55)
[2018-01-24] MEDS ORDERED: MAG HYDROX/AL HYDROX/SIMETH 30 ML UNIT-DOSE CUP PO PRN (04:55)
[2018-01-24] MEDS ORDERED: guaiFENesin/D-METHORPHAN HB 10 ML UNIT-DOSE CUPS PO PRN (04:55)
[2018-01-24] MEDS ORDERED: MENTHOL/PHENOL 1 EACH UD MM PRN (04:55)
[2018-01-24] MEDS ORDERED: LOPERAMIDE HCL 2 MG CAPSULE PO PRN (04:55)
[2018-01-24] MEDS ORDERED: chlordiazePOXIDE HCL 25 MG CAPSULE PO PRN (04:55)
[2018-01-24] MEDS ORDERED: hydrOXYzine PAMOATE 25 MG CAPSULE (FP) PO PRN (04:55)
[2018-01-24] MEDS ORDERED: P-EPHED 60MG/TRIPROLIDI 2.5MG TABLET PO PRN (04:55)
[2018-01-24] MEDS ORDERED: IBUPROFEN 400 MG TABLET (FP) PO PRN (04:55)
[2018-01-24] MEDS ORDERED: chlordiazePOXIDE HCL 25 MG CAPSULE PO ONE (04:55)
[2018-01-24] MEDS ORDERED: MAGNESIUM HYDROX 2400MG/30ML ORAL SUSPENSION 30 ML CUP PO PRN (04:55)
[2018-01-24] MEDS ORDERED: MAGNESIUM CITRATE 300 ML BOTTLE PO PRN (04:55)
[2018-01-24] MEDS: chlordiazePOXIDE HCL 25 MG CAPSULE PO SCH ×3 (06:53→16:54)
[2018-01-24] MEDS ORDERED: LISINOPRIL 10 MG TABLET (FP) PO SCH (10:00)
[2018-01-24] MEDS ORDERED: PRENATAL VITAMINS W/ FOLIC ACID TABLET (FP) PO SCH (10:00)
--- NOTE | 2018-01-24 17:54 | DS ---
[facility] Detox Discharge Summary Admission Date: 01/24/18 Discharge Date: 01/24/18 - History Present History: Alcohol Dependence Additional Comments: Patient barely started detox protocol and insists on leaving. Is alert and oriented w/ steady gait. - Physical Exam Results Vital Signs: Vital Signs Temperature 96.6 F L 01/24/18 13:54 Pulse Rate 95 H 01/24/18 15:51 Respiratory Rate 20 01/24/18 15:51 Blood Pressure 126/80 01/24/18 13:54 O2 Sat by Pulse Oximetry (%) Pertinent Admission Physical Exam Findings: Patient admitted in alcohol withdrawal. Labs results have not come back as yet. - Medication Discharge Medications: Ambulatory Orders Carvedilol [Coreg -] 6.25 mg PO BID 07/16/15 Lisinopril 10 mg PO DAILY 06/29/16 Furosemide 40 mg PO DAILY 09/06/16 Lisinopril 10 mg PO DAILY 09/06/16 - Diagnosis (1) Alcohol dependence with uncomplicated withdrawal Current Visit: Yes Status: Acute (2) HTN (hypertension) Current Visit: Yes Status: Chronic Qualifiers: Hypertension type: essential hypertension Qualified Code(s): I10 - Essential (primary) hypertension - AMA Did Patient Leave Against Medical Advice: Yes
[2018-01-24 18:30] VITALS: BP 155/100; PULSE 111; TEMP 97.1
[2018-01-24] MEDS ORDERED: MELATONIN 5 MG TABLETS PO PRN (22:00)
[2018-01-24] MEDS ORDERED: THIAMINE HCL 100 MG TABLET (FP) PO SCH (22:00)
--- NOTE | 2018-01-24 22:28 | EKG ---
Test Reason : Blood Pressure : / mmHG Vent. Rate : 082 BPM Atrial Rate : 082 BPM P-R Int : 162 ms QRS Dur : 104 ms QT Int : 384 ms P-R-T Axes : 057 020 069 degrees QTc Int : 448 ms NORMAL SINUS RHYTHM NORMAL ECG WHEN COMPARED WITH ECG OF 06-SEP-2016 22:35, NO SIGNIFICANT CHANGE WAS FOUND Confirmed by CAR BIRD MD ([id number]) on 01/24/2018 10:28:09 PM Referred By: Confirmed By:CAR BIRD MD
[2018-01-25] MEDS ORDERED: chlordiazePOXIDE HCL 25 MG CAPSULE PO SCH (05:00)
[2018-01-26] MEDS ORDERED: chlordiazePOXIDE 5 MG CAPSULE PO SCH (05:00)
[2018-01-27] MEDS ORDERED: chlordiazePOXIDE HCL 10 MG CAPSULE PO SCH (05:00)
== END 2018-01-24 18:30 | disposition left against medical advice (07) | DRG 770 ==
LOC: YASAS 04:18 → Y3N 04:53
PROC: HZ2ZZZZ Detoxification Services for Substance Abuse Treatment (ICD-10-PCS; principal; 2018-01-24)
DX: F10.230 Alcohol dependence with withdrawal, uncomplicated (principal); F41.8 Other specified anxiety disorders; I10 Essential (primary) hypertension; Z86.69 Personal history of other diseases of the nervous system and sense organs; Z86.79 Personal history of other diseases of the circulatory system; Z72.0 Tobacco use
CPT/HCPCS: 93005; 93010